=== PATIENT | female | born 1985 | race Caucasian/White ===

== ENCOUNTER → 2016-10-15 | Day surgery (SDC) | payer OTHER ==
[~2016-10-15] VITALS: Ht 162.6 cm; Wt 93.4 kg
[2016-10-15] VITALS (10 sets, daily range): BP systolic 106–127; BP diastolic 65–97; PULSE 61–85; RESP 15–21; O2SAT 90–100
[~2016-10-15] MED LIST: Atropine 0.4 mg/mL Inj IVPUSH PRN; Bupivacaine-MPF 0.5% 30 mL Inj INFILTRATE ONE; Bupivacaine-MPF 0.5% W/EPI 30 mL Inj INFILTRATE ONE; Dexamethasone 4 mg/mL Inj ONE; EPHEDrine Sulfate 50 mg/mL Inj IVPUSH PRN; Glycopyrrolate 0.2 MG/ML 1mL Inj ONE; HYDROmorphone 1 mg/mL Inj IVPUSH PRN; Labetalol 5 mg/mL 20 mL Inj IV PRN; Lactated Ringer's 1,000 ML IV ONE; Lactated Ringer's 1,000 ML IV SCH; Lactated Ringer's 500 ML IV PRN; MetoCLOpramide 5 mg/mL 2 mL Inj IVPUSH PRN; Neostigmine 1 mg/mL 10 mL Inj ONE; Ondansetron 2 mg/mL 2 mL Inj IVPUSH PRN; Ondansetron 2 mg/mL 2 mL Inj ONE; Phenylephrine 10,000 mCg/mL Inj IVPUSH PRN; Propofol 10,000 mCg/mL 20 mL Inj ONE; Rocuronium 10 mg/mL 5 mL Inj ONE; Succinylcholine Chloride 20 mg/mL 5 mL Inj ONE; fentaNYL-PF 50 mCg/mL 2 mL Inj IVPUSH PRN; fentaNYL-PF 50 mCg/mL 2 mL Inj ONE
--- NOTE | 2016-10-15 07:31 | HP PRE OP ---
[address] [address] PREOPERATIVE HISTORY AND PHYSICAL PATIENT: EMMA REAVES : 1985 MR#: [id number] ADMIT: 10/15/2016 JOB ID: [id number] DATE OF SERVICE: 10/15/2016 IDENTIFICATION: The patient is a 30-year-old, G 2, P2, AB 0 woman. CHIEF COMPLAINT: Desires sterilization by laparoscopic tubal ligation. HISTORY OF PRESENT ILLNESS: This patient is , she has two children. A salvadoron lives with she and her , and they have five children between them. Both the patient and her are certain that they do not want to have additional children. He will not do a vasectomy and she specifically would like to do tubal ligation. She has understood that this is a major surgery and is meant to be permanent, although there is a chance of tubal ligation failure with intrauterine or ectopic resulting. She has understood that there are risks to surgery, which include, bleeding, infection, injury to the urinary tract or bowel or other internal organs. There could be anesthetic risks. There could be need for laparotomy if complications were to occur and there will be postoperative pain, potential incisional problems, etc. All questions have been answered, no guarantees have been stated or implied, and the patient has signed informed consent for surgery. Note that she is using condoms for contraception and she has been very cautious to avoid . In summary, then, the patient will be admitted to [facility] on October 15, 2016, for a laparoscopic tubal ligation via planned Falope rings, with electrocauterization as back plan if needed. PHYSICAL EXAMINATION: On admission, weight 208 pounds, blood pressure 140/90. Neck: No thyromegaly. Lungs: Clear to auscultation and percussion. Heart: Regular in rate and rhythm. Abdomen: Abdominal wall is thick. No surgical scarring. Pelvic examination: Vulva, vagina and cervix: No obvious epithelial abnormalities. Bimanual examination: No obvious uterine or adnexal mass. Examination is limited due to increased abdominal wall thickness. DIAGNOSTIC DATA: See preoperative lab report, including CBC with platelets, comprehensive metabolic panel, TSH and prolactin and quantitative beta hCG level, report unavailable at the time and place of this dictation. IMPRESSION: 1. Desires sterilization by laparoscopic tubal ligation, scheduled for October 15, 2016. 2. Condoms for contraception. 3. Oligomenorrhea since last delivery, with every 2-3 month periods. Patient does report decreased weight compared to the past. No breast discharge or known thyroid problems. TSH and prolactin ordered with preoperative laboratories. 4. Obesity. 5. Mild hypertension. A single blood pressure elevation at preoperative visit, reportedly blood pressure normal outside the office, and has been normal in the office and during last previously. 6. Surgical history: a. Reproductive history: Vaginal delivery x2. b. Tonsillectomy. c. [place] teeth extraction. 7. Prior smoker, stopped in 2005. 8. History of abnormal Pap tests, over a decade ago, Pap subsequently normal per patient report. 9. History of depression, utilized medication. ALLERGIES: No known drug allergies. FAMILY HISTORY: Hypertension, diabetes, asthma, breast cancer (mother), and twins. PLAN: The patient will be admitted to [facility] on October 15, 2016, on which day she will undergo laparoscopic tubal ligation.
--- NOTE | 2016-10-15 07:46 | PCM.HPANE ---
Patient Data Surgeon Admitting Provider: Attending Provider:Eric Lutz MD Primary Care Physician:Gutierrez Other Provider:Mayte Rios Anesthesia Reason for Visit Completed Family Ht/WT & BMI Height (Feet): 5 Height (Inches): 4 Weight (Kilograms): 93.4 Body Mass Index 35.00 Allergies Coded Allergies: No Known Allergies (Verified , 10/10/16) Past Anesthesia History Anesthesia History: Denies:: Abnormal Airway, Anesthesia Reactions, Difficult Intubation, Fam Anesthesia Reaction, Fam Malignant Hypertherm, Malignant Hyperthermia Diabetes History Hx Diabetes?: No MRSA MRSA: No Medications Hypertension Medication: No Home Meds Incl Beta Jacqueline: No Discontinued Reported Medications [pnv] No Conflict Check1 Tab PO DAILY Ref 0 04/16/08 Discontinued Scripts [Ibuprofen] (Motrin)800 MG TABLET No Conflict [id number] Mg PO Q6H PRN For Pain # 20 TABLET Prov:Rachele Muñoz MD 07/23/14 History History of ENT Problems?: No HEENT History: Denies:: Abnormal Airway Cataracts Difficult Intubation Dysphagia Glaucoma Hearing Problem Sinus Problem TMJ Denture Type: None Teeth Condition: Within Normal Limits Hx of Heart Problems?: No Cardiovascular History: Denies:: AICD Abdominal Aortic Aneurism Cardiac Surgery Chest Pain Congestive Heart Failure Coronary Artery Disease Edema Heart Murmur Hypertension (during - not currently treated, monitoring) Irregular Heartbeat Pacemaker Peripheral Vascular Rheumatic Fever Hx of Respiratory Problem?: Yes Respiratory History: Positive for:: Tuberculosis (positive, completed trt 2005 ) Denies:: Asthma COPD Emphysema Oxygen Administration Pneumonia Use of C-PAP Machine Use of Inhalers / NEBS Hx Neurologic Problems?: No Neurological History: Denies:: Alzheimer's Disease CVA Dizziness Headaches Multiple Sclerosis Parkinson's Disease Seizures Hx of GI Problems?: No Hx of Problems?: No Genitourinary History: Denies:: Kidney Stones Urinary Tract Infection Female Hx: Denies:: Currently (NEG PREG TEST) Problems with Breasts? Skin History: Denies:: History Skin Disorders? Pressure Ulcers Hx Musculoskeletal Problems?: No Musculoskeletal History: Denies:: Back Injury (occasional back pain) Degenerative Joint Fibromyalgia Joint Replacement Musculoskeletal Trauma Myasthenia Gravis Osteoarthritis Systemic Lupus Hx of Psycho/Social Problems?: No Psycho Social History: Denies:: Anxiety Hx Depression Hx Surgeries?: Yes (tonsils, dental ) Hx Any Other Health Problems?: Yes Other History: Denies:: Cancer Thyroid Disease History Blood Transfusions: Positive for:: Accept Blood Products? Denies:: Blood Transfusions Hx Diabetes: No Hx Alcohol Use: YesAlcoholic Drinks Per Day: one drink every other weekendHx Substance Use: No Smoking Status: Never Smoker Stop/Bang S-Snoring: Do You Snore Loudly: No T-Tired: feel tired, fatigued: No O-Obsered: Observed not breath: No P-Blood Pressure: treated: No B- Body Mass Index > 35 kg/m2: No A- Age over 50: No N- Neck Large Circumference: No G- Gender Male: No ROGELIO Total Score: 0 Risk Assessment Category Category 1A: Patient has history of documented sleep apnea, and HAS NOT received any narcotic, sedative or anesthesia administration during this stay. Category 1B: Patient has history of documented sleep apnea, and HAS received any narcotic , sedative or anesthesia administration during this stay Category 2: Patient has SUSPECTED Obstructive Sleep Apnea, and HAS received any narcotic , sedative or anesthesia administration during this stay. Category 3: Patient has SUSPECTED Obstructive Sleep Apnea and HAS NOT received narcotic, sedative or anesthesia administration during this stay. Category 4: Outpatient in Procedural Areas with known sleep apnea or who screen positive for High Risk via the STOP/BANG questionnaire. Exam Exam Vital Signs Vital Signs Date Time Temp Pulse Resp B/P Pulse Ox O2 Delivery O2 Flow Rate FiO2 10/15/16 06:42 36.1 76 16 125/97 97 Room Air General Appearance: Alert, Oriented X3 HEENT/AIRWAY: MP 2, Neck Movement (FROM) Lungs: Clear to Auscultation, Clear to Percussion Heart: Exam Unremarkable, Regular Rate/Rhythm Meds/Labs/Diagnostics Admission Meds Current Medications Lactated Ringer's (Lr) 1,000 ml @ 120 mls/hr Q8H20M ONCE IV Last administered on 10/15/16 06:41; Start 10/15/16 at 05:00; Stop 10/15/16 at 13:19 Bupivacaine HCl (Sensorcaine-MPF 0.5% Inj) 30 ml STK-MED ONCE INFILTRATE Last administered on 10/15/16 07:08; Start 10/15/16 at 07:08; Stop 10/15/16 at 07:18; Status DC Plan Impression Patient chart reviewed, patient interviewed and anesthestic plan with risks, benefits, and alternatives discussed, and informed consent obtained. ASA Physical Status: ASA2 Mod Systemic Disease Anesthetic Plan: GA Bene/Risks/Altern/Consents: Yes HP Complete Prior to Induction: Yes Stan Verde MD Oct 15, 2016 07:19
--- NOTE | 2016-10-15 09:12 | PCM.ANEP1 ---
Post Anesthesia PACU Phase 1 Assessment Vital Signs Vital Signs Date Time Temp Pulse Resp B/P Pulse Ox O2 Delivery O2 Flow Rate FiO2 10/15/16 06:42 36.1 76 16 125/97 97 Room Air Anesthetic Administered: GA Level of Alertness: Awake, talking BLACKMON's with Equal Strength: Yes Pain: No Nausea or Vomiting: No CV Function & Hydration Stable: Yes Airway Device: Oxygen Delivery: Simple Mask Lungs: Clear to Auscultation, Clear to Percussion PACU Phase 2 Assessment Complications: No Follow up Care: No Patient Instructions Provided: N/A Comments See anesth record for PACU VS. PACU VSS Stan Verde MD Oct 15, 2016 09:12
[2016-10-15] MEDS: oxyCODONE-Acetamin 5-325 mg Tablet PO PRN ×2 (10:00→10:59)
--- NOTE | 2016-10-15 19:58 | OP ---
[address] [address] OPERATIVE REPORT PATIENT: EMMA REAVES : 1985 MR#: [id number] ADMIT: 10/15/2016 JOB ID: [id number] DATE OF SURGERY: 10/15/2016 SURGEON: Eric Lutz MD. PREOPERATIVE DIAGNOSIS(ES): Desires sterilization. POSTOPERATIVE DIAGNOSIS(ES): Desires sterilization. ANESTHESIA: General. PROCEDURE PERFORMED: Laparoscopic tubal ligation via Falope ring and electrocauterization. INDICATIONS FOR SURGERY: This patient and her significant other have five children between them and they are certain that they do not want to have additional children. He will not do vasectomy and she has requested tubal sterilization. She has understood that this is a major surgery, and that there is not a guarantee that it would not fail although unlikely. We have discussed Falope rings as primary sterilization had been planned although electrocauterization is a backup when needed. FINDINGS OF SURGERY: Uterus, fallopian tubes, and ovaries were normal without pelvic evidence for uterine or ovarian neoplasm, tubal neoplasm, or adhesions of these, pelvic infection or endometriosis, etc. At procedure's close, a Falope ring had been placed on the isthmic portion of the right fallopian tube with resultant blanched segment and secure ring. A 3 cm contiguous section of the left fallopian tube isthmic region had been electrocauterized in that the Falope ring applicator lacerated the fallopian tube with resultant bleeding. There was no bleeding occurring at any site at procedure's close, and tubal sterilization had been accomplished bilaterally via means as described. It certainly is anticipated that patient will do very well during the postoperative timeframe. PROCEDURE IN DETAIL: The patient was placed in a supine position on the operating table and general anesthesia was induced. She was then repositioned into the low dorsal lithotomy position and prepped and draped in the usual sterile manner. Appropriate time-out was taken. MEHRDAD cannula was then secured in place within the cervix/uterus and attention was then directed to the abdomen after a change of gloves. Short vertical subumbilical incision was then made with a knife and carried through the skin, subcutaneous tissues, and fascial layer. Peritoneal cavity was then entered using blunt dissection and the trocar sheath was secured in place. Laparoscope was introduced, CO2 and light sources connected, and video camera attached and video laparoscopy was accomplished with findings as noted above. Short transverse incision was then made at the hairline at the midline and second trocar sheath secured in place and a probe passed for manipulation of the ovaries and tubes to facilitate their identification of their entire aspects and normalcy. The Falope ring applicator was then individually loaded and advanced into the pelvis and a Falope ring was then advanced onto the isthmic portion of the right fallopian tube without incident. The Falope ring applicator was then individually located once again and advanced into the pelvis, and a gentle attempt was made to place the ring on the isthmic portion of the fallopian tube. However, ring did not deploy,rather the Falope ring applicator lacerated through the fallopian tube, as uncommonly can occur, and without obvious explanation as applicator appeared to function properly outside of the body. There was a little bit of tubal laceration-associated bleeding and with disruption of the isthmic fallopian tube focally,it was not felt that a Falope ring could be adequately and securely placed for tubal ligation and hemostatic purposes. Thus, backup electrocauterization was utilized effectively. The Kleppingers advanced through the operating channel of the scope, cauterizing a 3 cm contiguous isthmic portion tubal segment. Hemostasis was noted to be complete. This marked the completion of the internal portions of the surgical procedures. Each laparoscopic trocar sheath was removed and CO2 gas was allowed to escape. The subumbilical fascial incision was then closed in pursestring fashion using 0-Vicryl suture. The skin incision was then closed with interrupted vertical mattress stitches of 4-0 Vicryl suture and Marcaine with epinephrine solution was injected into the skin incisions. Mastisol was then applied and half-inch Steri-Strips placed across the incision and bandages over the Steri-Strips. MEHRDAD cannula was then removed from the cervix/uterus and patient was returned to supine position and then awakened and taken to the recovery room. ESTIMATED BLOOD LOSS: Less than 10 cc. COMPLICATIONS: None. PROGNOSIS: Good for surgical recovery.
== END | disposition home or self-care (01) ==
LOC: SAS 05:58
PROVIDERS: ATTEND Obstetrics & Gynecology
PROC: 0UL74CZ Occlusion of Bilateral Fallopian Tubes with Extraluminal Device, Percutaneous Endoscopic Approach (ICD-10-PCS; principal; 2016-10-15 07:30)
DX: Z30.2 Encounter for sterilization (principal); E66.9 Obesity, unspecified; I10 Essential (primary) hypertension; Z87.891 Personal history of nicotine dependence; Z68.35 Body mass index [BMI] 35.0-35.9, adult
CPT/HCPCS: 58671; A4264; J0330; J1100; J1170; J1885; J2175; J2405; J2704; J2710; J3010; J7120